=== PATIENT | female | born 1935 | race Caucasian/White ===

== ENCOUNTER 2017-06-05 14:25 | Day surgery (SDC) | payer MEDICARE, OTHER ==
[2017-06-05 14:47] VITALS: BP 129/63; PULSE 75; RESP 20; TEMP 97.8; O2SAT 92
--- NOTE | 2017-06-05 16:19 | RADRPT ---
EXAM DATE/TIME: 06/05/2017 14:48 [place] COMPARISON : No previous studies available for comparison. INDICATIONS : CONSULT 6mm aneurism OBJECTIVE: Temperature: 97.8 Heart Rate: 75 Blood Pressure: 129/63 Respiratory: 20 Oximetry: 92 PNEUMONIA VACCINE: HISTORY OF PRESENT ILLNESS: ? PAST MEDICAL HISTORY : 1. Stroke. 2. Hypercholesterolemia. 3. Gastroesopahgeal reflux disease. 4. A-FIB PAST SURGICAL HISTORY : 1. Hysterectomy. 2. R Mastectomy+reconstruction+replaced implant 3. Cholecystectomy. 4. Biopsy L eye 5. Removal tumor L thumb 6. Cataract R+L SOCIAL HISTORY : Social alcohol use. Tobacco;former. ALLERGIES: 1. Amniflox 2. Biaxin,Pcn, Sulfa,Macrobid 3. Benedryl 4. Ceftin,cipro,keflex,morphine MEDICATIONS: 1. Ambien 10 mg q.h.s. 2. Zoloft 50 mg q.d. 3. Lipitor 20 mg q.d. 4. Metoporolol 25 mg b.i.d. 5. Omeprazole 40 mg q.d. PHYSICAL EXAMINATION: 82-year-old white female no acute distress. IMAGING STUDIES: The patient's CT angiogram was reviewed. This demonstrates 2 aneurysms one at the level of the cavern ous carotid on the left. The second is just above this in the supraclinoid carotid. The largest measu res approximately 6 mm. 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 The patient is asymptomatic in regards to the aneurysms. The risks, benefits and potential complications of treatment were discussed. The patient does not desire treatment of aneurysms at this time. The patient was recently diagnosed with a atrial fibrillation and suffered a CVA. It was in the lilly p for the stroke the aneurysms were found. There was some concern in regard to anticoagulation the pa tient with the known aneurysm. The patient was advised the risk of recurrent stroke in the A. fib out weigh the risks related to anticoagulation as far as aneurysms are concerned. PLAN: The was advised to undergo followup CT angiogram in a year. TIME SPENT: 30 minutes. Yosi Winter MD on June 05, 2017 at 16:11 Board Certified Radiologist. This report was verified electronically.
== END 2017-06-05 15:50 | disposition home or self-care (01) ==
LOC: HROP 14:25 → HRIP 14:26 → HROP 15:50
PROVIDERS: ATTEND Internal Medicine Cardiovascular Disease
DX: I72.0 Aneurysm of carotid artery (principal); I48.91 Unspecified atrial fibrillation; K21.9 Gastro-esophageal reflux disease without esophagitis; E78.00 Pure hypercholesterolemia, unspecified; Z86.73 Personal history of transient ischemic attack (TIA), and cerebral infarction without residual deficits; Z88.5 Allergy status to narcotic agent; Z79.01 Long term (current) use of anticoagulants